=== PATIENT | male | born 1970 | race Two or more races ===

== ENCOUNTER 2020-07-27 16:49 | Emergency (ER) | payer OTHER ==
[~2020-07-27] VITALS: Ht 175.3 cm; Wt 93.0 kg
[2020-07-27] MEDS ORDERED: PROTONIX40 M1 (17:04)
[2020-07-27] MEDS ORDERED: AZOR 10-20 MG1 EACH (17:04)
== END 2020-07-27 20:55 | disposition home or self-care (01) ==
LOC: ER 16:49
DX: R07.89 Other chest pain (principal); Z03.818 Encounter for observation for suspected exposure to other biological agents ruled out